=== PATIENT | male | born 1955 | race African-American/Black ===

== ENCOUNTER 2020-07-24 18:17 | Emergency (ER) | payer MEDICAID ==
[~2020-07-24] VITALS: Ht 188 cm; Wt 128.0 kg
[2020-07-24] MEDS ORDERED: amiodarone (18:23)
[2020-07-24] MEDS ORDERED: AMLODIPINE 5MG TABLET PO ONE (19:00)
[2020-07-24] MEDS ORDERED: MAGNESIUM/ALUMINUM HYDROXIDE/SIMETHICONE 30ML UDC PO ONE (19:00)
[2020-07-24 21:34] LABS: BASOPHILS % 0.5 % (0.0-2.0); EOSINOPHILS % 1.8 % (0.0-5.0); HEMATOCRIT. 46.9 % (42.0-52.0); HEMOGLOBIN. 16.6 g/dL (14.0-18.0); LYMPHOCYTES % 34.9 % (20.0-50.0); MEAN CORPUSCULAR HEMOGLOBIN 30.8 pg (28.0-32.0); MEAN CORPUSCULAR VOLUME 86.8 fL (80.0-94.0); MEAN PLATELET VOLUME 8.5 fl (7.4-10.4); MONOCYTES % 8.7 % (2.0-8.0); NEUTROPHILS % 54.1 % (40.0-76.0); PLATELET 196 x1000/uL (130-400); RED BLOOD CELL COUNT 5.41 mill/uL (4.7-6.1); RED CELL DISTRIBUTION WIDTH 13.2 % (11.6-14.6)
[2020-07-24 21:48] LABS: CHLORIDE 108 mEq/L (98-107)
[2020-07-24] MEDS ORDERED: AMLO5TAB4 MT (22:17)
[2020-07-24 22:30] VITALS: BP 154/84
== END 2020-07-24 22:30 | disposition home or self-care (01) ==
LOC: ER 18:17
DX: I16.0 Hypertensive urgency (principal); R07.89 Other chest pain; Z91.14 Patient's other noncompliance with medication regimen
CPT/HCPCS: 36415; 71045; 80053; 83880; 84484; 85025; 93005; 99285